=== PATIENT | male | born 1960 | race Caucasian/White ===

== ENCOUNTER 2021-11-08 16:50 | Emergency (ER) | payer MEDICARE, SELFPAY ==
--- NOTE | ~2021-11-08 | MR_ITS ---
EXAMINATION: MR LUMBAR SPINE WITHOUT CONTRAST CLINICAL INFORMATION: Sudden onset back pain with numbness and weakness in the left lower extremity. COMPARISON: CT abdomen and pelvis 08/29/2018. TECHNIQUE: MRI of the lumbar spine was obtained using routine sequences without contrast. FINDINGS: Although only partially included within the [id number] of this examination there is subtle bone marrow edema within the sacrum that may represent the presence of a nondisplaced insufficiency fracture. There is a chronic compression deformity of the L1 vertebral body with impaction upper endplate resulting in 70% vertebral height loss anteriorly. No retropulsion of posterior cortex at this level. There is also a chronic Schmorl's node involving the upper T12 endplate. Vertebral heights are otherwise preserved. There is disc desiccation at multiple levels without substantial loss of intervertebral disc height. The tip of the conus medullaris is located at L1. No mass effect on the conus. Visualized distal cord signal intensity is normal. At L1-L2 the annular contour is normal. No canal or neuroforaminal compromise. At L2-L3 there is a slightly bulging disc. Bilateral facet degenerative change. No canal stenosis. No mass effect on the traversing or foraminal nerve roots. At L3-L4 there is a slightly bulging disc. Bilateral facet degenerative change. No canal stenosis. No mass effect on the traversing or foraminal nerve roots. At L4-L5 there is an asymmetrically bulging disc to the left. Bilateral facet degenerative change. Moderate canal stenosis. There is asymmetric narrowing of the left subarticular zone causing displacement and possible compression of left traversing L5 nerve roots. No foraminal nerve root compression. At L5-S1 there is a central annular fissure associated with an asymmetrically bulging disc to the left. Bilateral facet degenerative change. No canal stenosis. There is asymmetric narrowing of the left subarticular zone causing displacement and possible compression of the left traversing S1 nerve roots. No foraminal nerve root compression. Limited visualization of the retroperitoneal anatomy reveals no abnormal finding. Psoas and paraspinal superficial symmetric. MR/MR lumbar spine wo con IMPRESSION: Although only partially included within the [id number] of this examination is bone marrow edema involving the sacrum that may represent a nondisplaced sacral insufficiency fracture. Otherwise no acute finding. There is a chronic compression deformity of the L1 vertebral body with approximately 70% vertebral height loss anteriorly. There is also a chronic Schmorl's node involving the upper T12 endplate. Bulging discs in conjunction with facet degenerative change causes moderate canal stenosis at L4-L5. There is also asymmetric narrowing of the left subarticular zone at the levels of L4-L5 and L5-S1 resulting in displacement and possible compression of the left L5 and left S1 traversing nerve roots respectively.
[2021-11-08 17:02] VITALS: BP 173/91; BP 185/102; PULSE 58; PULSE 70; RESP 20; O2SAT 94; O2SAT 97; BMI 19.0
--- NOTE | 2021-11-08 17:53 | ED_ITS ---
HPI - Back Pain/Injury General Chief Complaint: Back Pain/Injury <ABDULLAHI Gonzales Last Filed: 11/08/21 20:54> Stated Complaint: left leg pain/ sciatic pain <ABDULLAHI Gonzales Last Filed: 11/08/21 20:54> Time Seen by Provider: 11/08/21 17:13 <ABDULLAHI Gonzales Last Filed: 11/08/21 20:54> Source: patient <ABDULLAHI Gonzales Last Filed: 11/08/21 20:54> Mode of arrival: ambulatory <ABDULLAHI Gonzales Last Filed: 11/08/21 20:54> Limitations: no limitations <ABDULLAHI Gonzales Last Filed: 11/08/21 20:54> History of Present Illness HPI Narrative: 61-year-old male with a past medical history of compression fracture of L1 lumbar vertebrae and COPD was a daily smoker denies any drug usage presenting to the ED with complaints of sudden onset of left lower back pain radiating to his left lower extremity that started around 15:25 prior to arrival while he was driving his car. He reports he has never had back pain like this in the past it has never radiated down to his left lower extremity he has never had numbness. He denies any dizziness, change in vision, headaches, rashes, chest pain, shortness of breath, dyspnea on exertion, orthopnea, palpitations, arm pain or weakness, facial pain or weakness, changes in speech or voice, abdominal pain, flank pain, dysuria, hematuria, abnormal penile discharge, black or bloody stools, lower extremity edema or calf tenderness, recent travel or sick contacts, IV drug use, recent falls or trauma, saddle anesthesia, urinary bowel incontinence or retention or any other symptoms complaints or concerns at this time. 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[employer]) <ABDULLAHI Gonzales Last Filed: 11/08/21 20:54> Timing: constant and progressively worsening <ABDULLAHI Gonzales - Last Filed: 11/08/21 20:54> Severity: severe <ABDULLAHI Gonzales - Last Filed: 11/08/21 20:54> Pain scale (0-10): 10 <ABDULLAHI Gonzales - Last Filed: 11/08/21 20:54> Similar Symptoms Previously: Yes (Although worse today) <ABDULLAHI Gonzales - Last Filed: 11/08/21 20:54> Quality: aching <ABDULLAHI Gonzales - Last Filed: 11/08/21 20:54> Location: lumbar spine <ABDULLAHI Gonzales - Last Filed: 11/08/21 20:54> Radiation: left leg below the knee <ABDULLAHI Gonzales - Last Filed: 11/08/21 20:54> Exacerbating factors: movement, supine positioning, sitting upright, walking and lifting <ABDULLAHI Gonzales - Last Filed: 11/08/21 20:54> Relieving factors: none <ABDULLAHI Gonzales - Last Filed: 11/08/21 20:54> Context: other (While driving) <ABDULLAHI Gonzales - Last Filed: 11/08/21 20:54> Associated symptoms: weakness (to LLE), numbness (to LLE) and difficulty walking <ABDULLAHI Gonzales - Last Filed: 11/08/21 20:54> Work related injury: No <ABDULLAHI Gonzales Last Filed: 11/08/21 20:54> Related Data Home Medications: Previous Rx's Medication Instructions Recorded lidocaine 5 % topical patch 1 patch topical DAILY PRN pain #15 11/08/21 ea morphine 15 mg immediate release 15 mg PO BID PRN pain #10 tabs 11/08/21 tablet <ABDULLAHI Gonzales - Last Filed: 11/08/21 20:54> Allergies/Adverse Reactions: Allergies Allergy/AdvReac Type Severity Reaction Status Date / Time No Known Allergies Allergy Verified 11/08/21 17:07 <ABDULLAHI Gonzales Last Filed: 11/08/21 20:54> Review of Systems Review of Systems: Constitutional : No trauma, No Weight loss, No Fever, No Chills, ENT/Mouth : No Hearing loss, No Ear Pain, No Nasal Congestion, No Sinus Pain, No Hoarseness, No sore throat, No Rhinorrhea, No Swallowing Difficulty Cardiovascular : No Chest Pain, No SOB Respiratory : No Cough, No Dyspnea Gastrointestinal : No Nausea, No Vomiting, No Diarrhea, No abdominal Pain, No Hematochezia, No Melena Genitourinary : No Dysuria, No Urinary Frequency, No Hematuria, No Urinary or Bowel Incontinence/retention Musculoskeletal : + Back pain, No neck pain, No joint stiffness, No joint swelling Skin : No Skin Lesions, No rash or signs of infection Neuro : + LLE Weakness, + to LLE radiation, + LLE Numbness, No headache, no loss of bowel or bladder incontinence, no saddle anesthesia, Denies history of IV drug usage. <ABDULLAHI Gonzales - Last Filed: 11/08/21 20:54> Yes all other systems are reviewed and are negative <ABDULLAHI Gonzales - Last Filed: 11/08/21 20:54> [facility] Past Medical History Attestation statement: The following information was validated with the patient. <ABDULLAHI Gonzales - Last Filed: 11/08/21 20:54> Source: old records reviewed and nursing notes reviewed <ABDULLAHI Gonzales - Last Filed: 11/08/21 20:54> Medical History: Medical History Compression fracture of L1 lumbar vertebra COPD (chronic obstructive pulmonary disease) Smoker <ABDULLAHI Gonzales - Last Filed: 11/08/21 20:54> Surgical History: Surgical History No pertinent past surgical history <ABDULLAHI Gonzales - Last Filed: 11/08/21 20:54> Social History Social History: Social History Housing: House Alcohol intake: current Alcohol intake frequency: 0-2 drinks per day Alcohol type: beer Patient Tobacco Use Status: Current everyday Tobacco user Cigarettes Per Day: 15 Second Hand Smoke Exposure: Yes Advance Directives: No Advance Directives Information Provided: No service: No Current occupational status: disabled <ABDULLAHI Gonzales Last Filed: 11/08/21 20:54> Physical Exam Vital Signs: Vital Signs: Last Vital Signs Pulse 50 11/08/21 22:25 Resp 16 11/08/21 22:25 BP 126/75 11/08/21 22:25 Pulse Ox 96 11/08/21 22:25 O2 Del Method 11/08/21 22:25 BMI result Body Mass Index 19.0 vital signs have been reviewed as normal and appeared to be correct. Blood pressure 185/102. Heart rate normal. Respiration rate normal. Temperature normal. Oxygen saturation normal. <ABDULLAHI Gonzales - Last Filed: 11/08/21 20:54> Vital Signs: Last Vital Signs Pulse 50 11/08/21 22:25 Resp 16 11/08/21 22:25 BP 126/75 11/08/21 22:25 Pulse Ox 96 11/08/21 22:25 O2 Del Method 11/08/21 22:25 BMI result Body Mass Index 19.0 <ABDULLAHI Honeycutt - Last Filed: 11/08/21 23:06> Appearance: Alert. Oriented X3. No acute distress. Head: Normal external exam. Normocephalic. Atraumatic. Eyes: PERRLA. EOMI. Conjunctiva and sclera normal. Eyelids normal. ENT: EAC normal. TM's Normal. Pharynx normal. Uvula midline. Moist mucous membranes. No trismus noted. No drooling noted. No muffled voice noted. Neck: Normal inspection. Neck supple. FROM. No adenopathy. Thyroid Normal. No meningeal signs. No neck mass noted. CVS: Normal heart rate and rhythm. Heart sound normal. No murmurs noted. Pulses normal throughout. Respiratory: No respiratory distress. Painless inspiration. Breath sounds normal. No wheezes/rales/rhonchi noted. Chest nontender. No accessory muscle usage noted or decreased air movement noted. Abdomen: Soft and nontender. Bowel sounds normal in all 4 quadrants. No distention noted. No organomegaly noted. No visible injury noted. Rectal Exam: No abnormalities noted. Normal sensation. Normal rectal tone/sphincter tone noted. Back: No CVA tenderness. Full range of motion noted. No obvious deformities, or edema. Mild para-spinal muscular/mid spinal tenderness from lumbar region to coccyx. Full ROM in back. Although appears to have weakness to LLE and decreased sensation and reflexes. FROM of RLE, normal sensation and motor to right lower extremity. 5/5 strength hip extension/flexion, abduction, adduction to RLE. Mild Lumbar pain with hip flexion against resistance. Straight leg raise test negative on right; Straight leg raise test negative on left; No rashes/lesion/i nduration/fluctuance or signs infection noted. Skin: Skin warm and dry. Normal skin color. Normal skin turgor. No rashes/lesions/lacerations noted. Extremities: No lower extremity edema. No calf tenderness noted. Extremities exhibit normal range of motion. Extremities nontender. Neuro: Oriented X 3. Some motor and sensory deficit to left lower extremity. Normal motor/sensory to upper bilateral arms and right lower extremity. Gait not tested due to pain reports weakness to left lower extremity. Unable to perform plantar flexion or dorsiflexion to left lower extremity. Able to perform plantar flexion and dorsiflexion to right lower extremity. Cranial nerves II-XI intact bilaterally. Facial strength normal. Normal cognition. Speech normal. No pronator drift. No tremor noted. No fasciculations noted. No rigidity noted. Muscle tone normal throughout. No asterixis noted. Finge r-to-nose test normal. Heel to mathew test normal. Hand drop from overhead Misses face. NIHSS score 0 <ABDULLAHI Gonzales - Last Filed: 11/08/21 20:54> Course Course Course Narrative: 17:40pm - Pt c likely muscular pain, but could be herniated disc. Patient does have some weakness to left lower extremity although normal sphincter tone/normal rectal sensation. Gait not tested at this time due to patient reports weakness to left lower extremity and refusing to ambulate at this time. Otherwise no other neuro deficits noted. He has full strength and sensation on all other extremities. Not c/w AAA/epidural abscess/dissection.No high risk Hx (Incont, fever, immunosupp, recent surgery/LP, coag, signif trauma, wt loss, puls mass, hx/o Ca, TB, or IVDU). Not c/w Pyelo/UTI/kidney stone/spinal fx. Not cauda equina syndrome. Although due to new onset of left lower extremity weakness not his usual lower back pain will obtain labs, UA, MRI of lumbar spine without contrast. Provide 4 mg of Zofran, 2 mg of p.o. Valium, 4 mg of morphine, 30 mg of IV Toradol and 125 mg of IV Solu-Medrol re-evaluate. <ABDULLAHI Gonzales Last Filed: 11/08/21 20:54> Reevaluation(s) Reevaluation #1: - labs returned reviewed patient's H&H 21.1/60.9 MCV 102.4. Platelet count 153. BUN 4. Random glucose 127. Total bilirubin 1.9. Alkaline phosphate 138. Otherwise all other labs are within normal limits. - awaiting UA and MRI will re-evaluate. <ABDULLAHI Gonzales - Last Filed: 11/08/21 20:54> Time: 20:17 <ABDULLAHI Gonzales Last Filed: 11/08/21 20:54> Reevaluation #2: Sign-out to CAR[facility] Patel pending MRI of lumbar spine and UA. <ABDULLAHI Gonzales Last Filed: 11/08/21 20:54> Time: 20:53 <ABDULLAHI Gonzales Last Filed: 11/08/21 20:54> Reevaluation #3: Patients MRI was reviewed, will consult [facility] neuro surgery for guidance. Patient requesting to go home however he tells me he does on be transferred. I did do an evaluation on this patient, 3/5 strength to left and 4/5 to right. Normal reflexes. Normal plantar and dorsiflexion w/ weakness on the left and normal on the right. Able to ambulate, no saddle paresthesias. <ABDULLAHI Honeycutt Last Filed: 11/08/21 23:06> Time: 22:44 <ABDULLAHI Honeycutt Last Filed: 11/08/21 23:06> Additional Reevaluation(s): 1058 Spoke to [facility] neuro Dr. Dwayne Rosado surgery went over MRI report with Dr. Jose paniagua for outpatient follow up. Recommend pain control measures and prompt outpatient follow up. Sent imaging to [facility] and he was able to visualize imaging. He tells me L1 appears to be chronic, not causing nerve compression at that site. L4-L5 w/ b/l foraminal stenosis, no need for emergent tx at this time. Recommends conservative therapies. Patient will likely require pain control, conservative management, physical therapy, outpatient referral and potentially injections. Recommend referral to neurosurgery if conservative fails. Worsening pain should prompt emergency room visit, will educate patient on worrisome signs and symptoms and when to return or go to [facility]. At this time I feel comfortable discharge home will discharge on p.o. morphine. At time of discharge patient able to ambulate without difficulties, normal coordination, while he has been in the emergency department no bladder or bowel incontinence/retention, he also denied this previously, patient appears comfortable would like to go home at this time. Educated on treatment plan and diagnosis comfortable with discharge. <ABDULLAHI Honeycutt - Last Filed: 11/08/21 23:06> MDM - Back Pain/Injury Medical Records Attestation: I reviewed the patient's medical records. <ABDULLAHI Gonzales - Last Filed: 11/08/21 20:54> Lab Data Attestation: I reviewed the patient's lab results. <ABDULLAHI Gonzales - Last Filed: 11/08/21 20:54> Result diagrams: : 11/08/21 18:02 11/08/21 18:02 <ABDULLAHI Gonzales - Last Filed: 11/08/21 20:54> Labs: Lab Results 11/08/21 11/08/21 11/08/21 Range/Units 18:02 18:02 18:02 WBC 10.7 (4.8-10.8) X10*3/uL RBC 5.95 H (4.60-5.80) X10*6/uL Hgb 21.2 H (14.0-18.0) g/dl Hct 60.9 H (42.0-52.0) % MCV 102.4 H (80.0-98.0) fL MCH 35.6 H (27.0-33.0) pg MCHC 34.8 (31.0-36.0) g/dl RDW 13.6 (11.0-16.0) % Plt Count 153 L (160-400) X10*3/uL MPV 9.3 L (9.4-12.4) fL Immature Gran % (Auto) 0.9 H (0.0-0.4) % Neut % (Auto) 80.2 H (45-73) % Lymph % (Auto) 7.1 L (20-40) % [place] % (Auto) 11.2 H (2-11) % Eos % (Auto) 0.1 (0-4) % Baso % (Auto) 0.5 (0-2) % Lymph # (Auto) 0.8 L (1.2-4.9) X10*3/uL [place] # (Auto) 1.2 (0.1-1.2) X10*3/uL Eos # (Auto) 0.0 (0.0-0.4) X10*3/uL Baso # (Auto) 0.1 (0.0-0.2) X10*3/uL Abs Immat Gran (auto) 0.10 H (0.00-0.03) X10*3/uL Absolute Neuts (auto) 8.5 H (2.0-8.3) x10*3/uL Absolute Nucleated RBC 0.000 (0.0-0.012) X10*3/uL Nucleated RBC % (auto) 0.0 (0.0-0.2) /100WBC Smear Tech's Comments VERIFIED ESR (0-15) MM/HR PT 11.9 (10.0-13.1) SEC INR 1.0 (0.9-1.1) Sodium 138 (135-145) mmol/L Potassium 3.8 (3.3-5.1) mmol/L Chloride 97 (96-108) mmol/L Carbon Dioxide 26 (22-29) mmol/L Anion Gap 19 (12-20) BUN 4 L (9-16) mg/dL Creatinine 0.80 (0.5-1.4) mg/dL Estim Creat Clear Calc 75.7 Estimated GFR > 60 Random Glucose 127 H (60-115) mg/dL Calcium 8.5 (8.4-10.2) mg/dL Magnesium 1.7 (1.6-2.6) mg/dL Total Bilirubin 1.9 H (0.0-1.0) mg/dL AST 23 (5-37) U/L ALT 14 (0-40) U/L Alkaline Phosphatase 138 H (39-117) U/L C-Reactive Protein 0.39 (< or = 0.50) mg/dL Total Protein 6.6 (6.5-8.0) g/dL Albumin 3.7 (3.5-5.0) g/dL 11/08/ Range/Units 18:02 WBC (4.8-10.8) X10*3/uL RBC (4.60-5.80) X10*6/uL Hgb (14.0-18.0) g/dl Hct (42.0-52.0) % MCV (80.0-98.0) fL MCH (27.0-33.0) pg MCHC (31.0-36.0) g/dl RDW (11.0-16.0) % Plt Count (160-400) X10*3/uL MPV (9.4-12.4) fL Immature Gran % (Auto) (0.0-0.4) % Neut % (Auto) (45-73) % Lymph % (Auto) (20-40) % [place] % (Auto) (2-11) % Eos % (Auto) (0-4) % Baso % (Auto) (0-2) % Lymph # (Auto) (1.2-4.9) X10*3/uL [place] # (Auto) (0.1-1.2) X10*3/uL Eos # (Auto) (0.0-0.4) X10*3/uL Baso # (Auto) (0.0-0.2) X10*3/uL Abs Immat Gran (auto) (0.00-0.03) X10*3/uL Absolute Neuts (auto) (2.0-8.3) x10*3/uL Absolute Nucleated RBC (0.0-0.012) X10*3/uL Nucleated RBC % (auto) (0.0-0.2) /100WBC Smear Tech's Comments ESR 1 (0-15) MM/HR PT (10.0-13.1) SEC INR (0.9-1.1) Sodium (135-145) mmol/L Potassium (3.3-5.1) mmol/L Chloride (96-108) mmol/L Carbon Dioxide (22-29) mmol/L Anion Gap (12-20) BUN (9-16) mg/dL Creatinine (0.5-1.4) mg/dL Estim Creat Clear Calc Estimated GFR Random Glucose (60-115) mg/dL Calcium (8.4-10.2) mg/dL Magnesium (1.6-2.6) mg/dL Total Bilirubin (0.0-1.0) mg/dL AST (5-37) U/L ALT (0-40) U/L Alkaline Phosphatase (39-117) U/L C-Reactive Protein (< or = 0.50) mg/dL Total Protein (6.5-8.0) g/dL Albumin (3.5-5.0) g/dL <ABDULLAHI Gonzales - Last Filed: 11/08/21 20:54> Lab Results 11/08/21 11/08/21 11/08/21 Range/Units 18:02 18:02 18:02 WBC 10.7 (4.8-10.8) X10*3/uL RBC 5.95 H (4.60-5.80) X10*6/uL Hgb 21.2 H (14.0-18.0) g/dl Hct 60.9 H (42.0-52.0) % MCV 102.4 H (80.0-98.0) fL MCH 35.6 H (27.0-33.0) pg MCHC 34.8 (31.0-36.0) g/dl RDW 13.6 (11.0-16.0) % Plt Count 153 L (160-400) X10*3/uL MPV 9.3 L (9.4-12.4) fL Immature Gran % (Auto) 0.9 H (0.0-0.4) % Neut % (Auto) 80.2 H (45-73) % Lymph % (Auto) 7.1 L (20-40) % [place] % (Auto) 11.2 H (2-11) % Eos % (Auto) 0.1 (0-4) % Baso % (Auto) 0.5 (0-2) % Lymph # (Auto) 0.8 L (1.2-4.9) X10*3/uL [place] # (Auto) 1.2 (0.1-1.2) X10*3/uL Eos # (Auto) 0.0 (0.0-0.4) X10*3/uL Baso # (Auto) 0.1 (0.0-0.2) X10*3/uL Abs Immat Gran (auto) 0.10 H (0.00-0.03) X10*3/uL Absolute Neuts (auto) 8.5 H (2.0-8.3) x10*3/uL Absolute Nucleated RBC 0.000 (0.0-0.012) X10*3/uL Nucleated RBC % (auto) 0.0 (0.0-0.2) /100WBC Smear Tech's Comments VERIFIED ESR (0-15) MM/HR PT 11.9 (10.0-13.1) SEC INR 1.0 (0.9-1.1) Sodium 138 (135-145) mmol/L Potassium 3.8 (3.3-5.1) mmol/L Chloride 97 (96-108) mmol/L Carbon Dioxide 26 (22-29) mmol/L Anion Gap 19 (12-20) BUN 4 L (9-16) mg/dL Creatinine 0.80 (0.5-1.4) mg/dL Estim Creat Clear Calc 75.7 Estimated GFR > 60 Random Glucose 127 H (60-115) mg/dL Calcium 8.5 (8.4-10.2) mg/dL Magnesium 1.7 (1.6-2.6) mg/dL Total Bilirubin 1.9 H (0.0-1.0) mg/dL AST 23 (5-37) U/L ALT 14 (0-40) U/L Alkaline Phosphatase 138 H (39-117) U/L C-Reactive Protein 0.39 (< or = 0.50) mg/dL Total Protein 6.6 (6.5-8.0) g/dL Albumin 3.7 (3.5-5.0) g/dL 11/08/21 Range/Units 18:02 WBC (4.8-10.8) X10*3/uL RBC (4.60-5.80) X10*6/uL Hgb (14.0-18.0) g/dl Hct (42.0-52.0) % MCV (80.0-98.0) fL MCH (27.0-33.0) pg MCHC (31.0-36.0) g/dl RDW (11.0-16.0) % Plt Count (160-400) X10*3/uL MPV (9.4-12.4) fL Immature Gran % (Auto) (0.0-0.4) % Neut % (Auto) (45-73) % Lymph % (Auto) (20-40) % [place] % (Auto) (2-11) % Eos % (Auto) (0-4) % Baso % (Auto) (0-2) % Lymph # (Auto) (1.2-4.9) X10*3/uL [place] # (Auto) (0.1-1.2) X10*3/uL Eos # (Auto) (0.0-0.4) X10*3/uL Baso # (Auto) (0.0-0.2) X10*3/uL Abs Immat Gran (auto) (0.00-0.03) X10*3/uL Absolute Neuts (auto) (2.0-8.3) x10*3/uL Absolute Nucleated RBC (0.0-0.012) X10*3/uL Nucleated RBC % (auto) (0.0-0.2) /100WBC Smear Tech's Comments ESR 1 (0-15) MM/HR PT (10.0-13.1) SEC INR (0.9-1.1) Sodium (135-145) mmol/L Potassium (3.3-5.1) mmol/L Chloride (96-108) mmol/L Carbon Dioxide (22-29) mmol/L Anion Gap (12-20) BUN (9-16) mg/dL Creatinine (0.5-1.4) mg/dL Estim Creat Clear Calc Estimated GFR Random Glucose (60-115) mg/dL Calcium (8.4-10.2) mg/dL Magnesium (1.6-2.6) mg/dL Total Bilirubin (0.0-1.0) mg/dL AST (5-37) U/L ALT (0-40) U/L Alkaline Phosphatase (39-117) U/L C-Reactive Protein (< or = 0.50) mg/dL Total Protein (6.5-8.0) g/dL Albumin (3.5-5.0) g/dL <ABDULLAHI Honeycutt Last Filed: 11/08/21 23:06> Imaging Data Lumbar spine MRI without contrast: Attestation: I personally reviewed and interpreted this imaging study as follows: <ABDULLAHI Gonzales Last Filed: 11/08/21 20:54> Critical Care Time Critical Care Time Critical Care Time: Yes <ABDULLAHI Gonzales Last Filed: 11/08/21 20:54> Total Critical Care Time: 60 <ABDULLAHI Gonzales Last Filed: 11/08/21 20:54> Attestation: I personally attest to this time spent taking care of the patient <ABDULLAHI Gonzales Last Filed: 11/08/21 20:54> Discharge Plan Discharge Clinical Impression: Lower back pain, Sacral fracture, Lumbar disc herniation <ABDULLAHI Gonzales Last Filed: 11/08/21 20:54> Patient Disposition: Home, Self-Care <ABDULLAHI Gonzales Last Filed: 11/08/21 20:54> Instructions: Sacral Fracture (ED), Acute Low Back Pain (ED), Back Pain (ED) <ABDULLAHI Gonzales Last Filed: 11/08/21 20:54> Additional Instructions: Take your medications as prescribed. If you were prescribed antibiotics today, it is important that you take your medication to their entirety, do not skip any doses, do not finish them early. Follow-up with your primary care provider this week. Return to the emergency department with new or worsening symptoms. Such as fevers, chills, chest pain, shortness of breath, nausea, vomiting, dizziness, headache, vision changes, lethargy, urinary/bowel incontinence or retention, weakness, inability to walk, worsening pain In case of emergency call 911 <ABDULLAHI Gonzales Last Filed: 11/08/21 20:54> Prescriptions: New lidocaine 5 % adhesive patch,medicated 1 patch topical DAILY PRN (Reason: pain) Qty: 15 0RF Rx Instructions: leave on most painful area for up to 12 hrs morphine 15 mg tablet 15 mg PO BID PRN (Reason: pain) Qty: 10 0RF Rx Instructions: Partial Fill upon patient request. <ABDULLAHI Gonzales Last Filed: 11/08/21 20:54>
[2021-11-08 18:09] LABS: Eosinophils Percent Auto 0.1 % (0-4); Imm Gran Pct Auto 0.9 % (0.0-0.4); MANUAL DIFF FLAG SCAN; PLT CLUMP 1; Red Cell Distribution Width 13.6 % (11.0-16.0); SCAN SMEAR FLAG 1
[2021-11-08 18:10] VITALS: RESP 20
[2021-11-08] MEDS: Morphine Sulfate 4 MG/ML CARTRIDGE IVPUSH (18:10)
[2021-11-08] MEDS: ondansetron HCL 4 MG/2 ML VIAL IVPUSH (18:10)
[2021-11-08] MEDS: methylPREDNISolone Sod Succ 125 MG/2 ML VIAL IVPUSH (18:10)
[2021-11-08] MEDS: diazePAM 2 MG TABLET PO (18:10)
[2021-11-08] MEDS: Ketorolac Tromethamine 30 MG/ML VIAL IVPUSH (18:10)
[2021-11-08 18:11] LABS: Basophils Absolute Auto 0.1 X10*3/uL (0.0-0.2); Basophils Percent Auto 0.5 % (0-2); Lymphocytes Absolute Auto 0.8 X10*3/uL (1.2-4.9); Lymphocytes Percent Auto 7.1 % (20-40); Mean Corpuscular HGB Conc 34.8 g/dl (31.0-36.0); Mean Corpuscular Hemoglobin 35.6 pg (27.0-33.0); Mean Corpuscular Volume 102.4 fL (80.0-98.0); Mean Platelet Volume 9.3 fL (9.4-12.4); Monocytes Absolute Auto 1.2 X10*3/uL (0.1-1.2); Monocytes Percent Auto 11.2 % (2-11); Neutrophils Absolute Auto 8.5 x10*3/uL (2.0-8.3); Neutrophils Percent Auto 80.2 % (45-73); Red Blood Count 5.95 X10*6/uL (4.60-5.80)
[2021-11-08 18:13] LABS: Hematocrit 60.9 % (42.0-52.0); Hemoglobin 21.2 g/dl (14.0-18.0); Prothrombin Time 11.9 SEC (10.0-13.1)
[2021-11-08 18:15] LABS: Platelet Count 153 X10*3/uL (160-400); White Blood Count 10.7 X10*3/uL (4.8-10.8)
[2021-11-08 18:29] LABS: SLIDE REVIEW VERIFIED
[2021-11-08 18:44] LABS: Alanine Aminotransferase 14 U/L (0-40); Albumin Level 3.7 g/dL (3.5-5.0); Alkaline Phosphatase 138 U/L (39-117); Anion Gap 19 (12-20); Aspartate Amino Transferase 23 U/L (5-37); Bilirubin Total 1.9 mg/dL (0.0-1.0); Blood Urea Nitrogen 4 mg/dL (9-16); Calcium 8.5 mg/dL (8.4-10.2); Carbon Dioxide 26 mmol/L (22-29); Chloride 97 mmol/L (96-108); Creatinine Clr Calc Pharmacy 75.7; Estimated Glomerular Filt Rate > 60; Glucose Random 127 mg/dL (60-115); Magnesium 1.7 mg/dL (1.6-2.6); Potassium 3.8 mmol/L (3.3-5.1); Sodium 138 mmol/L (135-145); Total Protein 6.6 g/dL (6.5-8.0)
[2021-11-08 19:00] VITALS: BP 141/76; PULSE 64; RESP 16; O2SAT 92
--- NOTE | 2021-11-08 19:02 | PC.NURSE ---
patient awake and alert, skin pwd, resp even and non labored. speaking in full, clear sentences. states left back and left leg pain remain the same post meds. awaiting MRI at 1999.
--- NOTE | 2021-11-08 20:07 | PC.NURSE ---
patient currently at MRI
[2021-11-08 21:04] LABS: Add Laboratory Test ADDED
[2021-11-08 21:13] LABS: C Reactive Protein 0.39 mg/dL (< or = 0.50)
[2021-11-08 21:48] LABS: Erythrocyte Sedimentation Rate 1 MM/HR (0-15)
[2021-11-08 22:25] VITALS: BP 126/75; PULSE 50; RESP 16; O2SAT 96
== END 2021-11-08 23:30 | disposition home or self-care (01) ==
PROVIDERS: Physician Assistant; Physician Assistant Medical; Emergency Provider Emergency Medicine; PCP Internal Medicine
DX: S32.10XA Unspecified fracture of sacrum, initial encounter for closed fracture (principal); X58.XXXA Exposure to other specified factors, initial encounter; M51.26 Other intervertebral disc displacement, lumbar region; M54.50 Low back pain, unspecified; F17.210 Nicotine dependence, cigarettes, uncomplicated; Y93.89 Activity, other specified; Y92.810 Car as the place of occurrence of the external cause; Y99.9 Unspecified external cause status
CPT/HCPCS: 36415; 72148; 80053; 83735; 85025; 85610; 85652; 86140; 96374; 96375; 99284; 99285; J1885; J2270; J2405; J2930

== ENCOUNTER → 2021-11-27 15:44 | Outpatient (BNVA) | payer MEDICARE, SELFPAY | PROVIDERS: PCP Internal Medicine; Visit Provider Internal Medicine Endocrinology, Diabetes & Metabolism | DX: M84.48XA Pathological fracture, other site, initial encounter for fracture (principal); M80.88XS Other osteoporosis with current pathological fracture, vertebra(e), sequela | CPT/HCPCS: 99202 ==

== ENCOUNTER 2021-12-17 09:20 | Outpatient (REF) | payer MEDICARE, SELFPAY ==
[2021-12-17 11:18] LABS: MANUAL DIFF FLAG NO
[2021-12-17 11:31] LABS: Basophils Percent Auto 0.5 % (0-2); Eosinophils Absolute Auto 0.2 X10*3/uL (0.0-0.4); Eosinophils Percent Auto 2.4 % (0-4); Hemoglobin 19.8 g/dl (14.0-18.0); Imm Gran Abs Auto 0.04 X10*3/uL (0.00-0.03); Imm Gran Pct Auto 0.5 % (0.0-0.4); Lymphocytes Percent Auto 36.3 % (20-40); Mean Corpuscular HGB Conc 34.2 g/dl (31.0-36.0); Mean Corpuscular Hemoglobin 34.2 pg (27.0-33.0); Mean Platelet Volume 11.2 fL (9.4-12.4); Monocytes Absolute Auto 0.8 X10*3/uL (0.1-1.2); Neutrophils Absolute Auto 4.2 x10*3/uL (2.0-8.3); Neutrophils Percent Auto 50.3 % (45-73); Platelet Count 227 X10*3/uL (160-400); Red Blood Count 5.79 X10*6/uL (4.60-5.80); Red Cell Distribution Width 12.9 % (11.0-16.0); White Blood Count 8.4 X10*3/uL (4.8-10.8)
[2021-12-17 11:33] LABS: Hematocrit 57.9 % (42.0-52.0)
[2021-12-17 11:47] LABS: Appearance Urine Clear; Color Urine Yellow; Glucose Urine UA Negative (Negative); Leukocyte Esterase Urine Negative (Negative); Nitrite Urine Negative (Negative); PH 5.5 (5.0-9.0); Urine Blood Negative (Negative); Urine Ketones Negative (Negative); Urine Protein Negative (Neg-Trace)
[2021-12-17 12:03] LABS: Alanine Aminotransferase 12 U/L (0-40); Alkaline Phosphatase 67 U/L (39-117); Anion Gap 15 (12-20); Aspartate Amino Transferase 15 U/L (5-37); Bilirubin Total 0.7 mg/dL (0.0-1.0); Blood Urea Nitrogen 9 mg/dL (9-16); Calcium 9.7 mg/dL (8.4-10.2); Carbon Dioxide 29 mmol/L (22-29); Chloride 101 mmol/L (96-108); Cholesterol 175 mg/dL; Estimated Glomerular Filt Rate > 60; Glucose Fasting 94 mg/dL (60-99); HDL Cholesterol 77 mg/dL; LDL Cholesterol Calculated 79 mg/dl; Phosphorus 3.5 mg/dL (2.7-4.5); Potassium 4.2 mmol/L (3.3-5.1); Sodium 141 mmol/L (135-145); Total Protein 6.7 g/dL (6.5-8.0); Triglycerides 97 mg/dL
[2021-12-17 12:09] LABS: Prostate Specific Antigen Scr 1.81 ng/mL (<0.05-4.0); TSH reflex Free T4 2.17 uIU/mL (0.32-4.0); Vitamin D 25-OH Total 7.2 ng/mL (>30)
[2021-12-18 21:27] LABS: Prot Elec - Albumin 3.9 g/dL (3.8-4.8); Prot Elec - Alpha1 0.4 g/dL (0.2-0.3); Prot Elec - Beta 1 0.4 g/dL (0.4-0.6); Prot Elec - Beta 2 0.3 g/dL (0.2-0.5); Prot Elec - Gamma 0.9 g/dL (0.8-1.7); Prot Elec - Total Protein 6.9 g/dL (6.1-8.1)
[2021-12-23 19:42] LABS: Testosterone, Total 562 ng/dL (250-1100)
== END 2021-12-17 09:21 | disposition home or self-care (01) ==
LOC: HO.HMGCLDS 09:20
PROVIDERS: Absent Provider Internal Medicine Endocrinology, Diabetes & Metabolism; PCP Internal Medicine; Visit Provider Internal Medicine
DX: Z00.00 Encounter for general adult medical examination without abnormal findings (principal); E55.9 Vitamin D deficiency, unspecified; M80.00XS Age-related osteoporosis with current pathological fracture, unspecified site, sequela; Z12.5 Encounter for screening for malignant neoplasm of prostate; E78.5 Hyperlipidemia, unspecified; R53.83 Other fatigue
CPT/HCPCS: 36415; 80053; 80061; 81003; 82306; 84100; 84153; 84165; 84402; 84403; 84443; 85025; 86335

== ENCOUNTER 2021-12-20 09:12 | Outpatient (REF) | payer MEDICARE, SELFPAY ==
[2021-12-20 12:24] LABS: Total Volume 24 Hour Urine 600 mL
[2021-12-20 13:19] LABS: Creatinine, 24Hr Urine 0.7 G/Day (1.0-2.0)
[2021-12-22 17:52] LABS: Calcium, 24 Hr Urine 103 mg/24 h; Calcium/Creatinine Ratio 150 mg/g creat (30-210); Creatinine 24Hr Urine 0.68 g/24 h (0.50-2.15)
== END 2021-12-20 09:13 | disposition home or self-care (01) ==
LOC: HO.HMGCLDS 09:12
PROVIDERS: PCP Internal Medicine; Visit Provider Internal Medicine Endocrinology, Diabetes & Metabolism
DX: M80.00XS Age-related osteoporosis with current pathological fracture, unspecified site, sequela (principal)
CPT/HCPCS: 82340; 82570

== ENCOUNTER 2021-12-21 14:46 | Outpatient (REF) | payer MEDICARE, SELFPAY ==
--- NOTE | ~2021-12-21 | MM_ITS ---
EXAMINATION: BONE DENSITOMETRY CLINICAL INDICATION: Osteoporosis. COMPARISON: Baseline BD dated 12/23/2017. TECHNIQUE: Using a imeem DXA System (software version: 13.1) manufactured by [employer], dual-energy x-ray absorptiometry was performed of the lumbar spine and left hip. The images are of good technical quality. Summary results are attached. FINDINGS: AP SPINE L1-L4: Current: BMD 0.878 g/cm2, Z-score -1.4, T-score -2.8, osteoporosis, 5.2% decrease from baseline (<5% change is not significant). Baseline: BMD 0.926 g/cm2. LEFT FEMUR, NECK: Current: BMD 0.779 g/cm2, Z-score -0.5, T-score -2.2, osteopenia. Baseline: BMD 0.784 g/cm2. LEFT FEMUR, TOTAL: Current: BMD 0.719 g/cm2, Z-score -1.5, T-score -2.7, osteoporosis, 6.1% decrease from baseline (<5% change is not significant). Baseline: BMD 0.766 g/cm2. IDENTIFIED RISK FACTORS: Height loss, history of fracture (adult), low body weight, low calcium intake, osteoporosis, tobacco use (current smoker). HISTORY OF FRACTURE: Spine, wrist. MEDICATIONS: None listed. MM/XR DEXA axial skeleton IMPRESSION: 1. DIAGNOSIS: Osteoporosis based on the lowest T-score value of -2.8 in the lumbar spine applying World Health Organization criteria. 2. 10-YEAR FRACTURE RISK PREDICTION, FRAX: According to the guidelines, FRAX calculation should only be performed on patients in the osteopenia bone density category. Therefore, FRAX was not performed on this patient. 3. Treatment Recommendations: NOF guidelines recommend consideration for treatment in postmenopausal women and men age 50 and older presenting with the following: -A hip or vertebral (clinical or morphometric) fracture. -T-score less than or equal to -2.5 at the femoral neck or spine after appropriate evaluation to exclude secondary causes. -Low bone mass at the hip or spine and a 10-year fracture probability by FRAX of greater than or equal to 3% for hip fracture or greater than or equal to 20% for major osteoporotic fracture based on the [place] adapted WHO algorithm. 4. Other Recommendations: All treatment decisions require clinical judgment and consideration of individual patient factors, including patient preferences, comorbidities, previous drug use, risk factors not captured in the FRAX model (e.g. frailty, falls, vitamin D deficiency, increased bone turnover, interval significant decline in bone density) and possible under or overestimation of fracture risk by FRAX. Additional medical evaluation for secondary cause of low bone mineral density may be appropriate. FUTURE SCAN RECOMMENDATION: People with diagnosed cases of osteoporosis or at high risk for fracture should have regular bone mineral density tests. For patients eligible for Medicare, routine testing is allowed once every 2 years. The testing frequency can be increased to one year for patients who have rapidly progressing disease, those who are receiving or discontinuing medical therapy to restore bone mass, or have additional risk factors.
== END 2021-12-21 14:47 | disposition home or self-care (01) ==
LOC: HO.MAMMO 14:46
PROVIDERS: PCP Internal Medicine; Visit Provider Internal Medicine
DX: M81.8 Other osteoporosis without current pathological fracture (principal)
CPT/HCPCS: 77080

== ENCOUNTER 2022-01-01 07:54 | Outpatient (REF) | payer MEDICARE, SELFPAY | END 2022-01-01 07:55 | disposition home or self-care (01) | LOC: HO.BBR 07:54 | PROVIDERS: PCP Internal Medicine; Visit Provider Internal Medicine | DX: D75.1 Secondary polycythemia (principal) | CPT/HCPCS: 85018; 99195 ==

== ENCOUNTER 2022-01-10 13:02 | Outpatient (REF) | payer MEDICARE, SELFPAY ==
--- NOTE | ~2022-01-10 | CT_ITS ---
EXAMINATION: CT CHEST WITHOUT CONTRAST CLINICAL INFORMATION: Weight loss, polycythemia, smoking history. COMPARISON: Chest radiograph 02/04/2019, CTA chest 12/16/2016. TECHNIQUE: Multidetector volumetric CT imaging of the chest was done. Axial MIP volume rendering provided. Sagittal and coronal reformatted images were obtained. This CT examination was performed using dose optimization techniques as appropriate, variously including the following: *Automated exposure control *Adjustment of mA and/or kV according to patient size (this includes techniques or standardized protocols for targeted exams where dose is matched to indication/reason for exam; i.e. extremities or head) *Use of iterative reconstruction technique DLP: 191 mGy-cm FINDINGS: LUNGS: Scattered pulmonary nodular densities are seen, and krueger images of all have been saved. For example: 3 mm left upper lobe nodule anteriorly (5:232). Two adjacent possible tree-in-bud type nodular densities seen measuring 8 mm together (5:267). 3 mm right lower lobe nodule (5:308). Two adjacent branching densities in the left lower lobe measuring about 3 mm each (5:313-320). 4 mm ground-glass opacity right lower lobe with adjacent 3 mm nodular density (5:337). 3 mm branching nodular density right lower lobe laterally (5:431). At the time of the 2017 study, moderately severe reticular opacities and some ground-glass opacities were present which appear significantly improved. I cannot say, however, that the opacities seen on today's study were present previously. MEDIASTINUM: Ascending aorta is dilated measuring 4.3 cm maximum transverse dimension at the level of the pulmonary artery where as previously this was 4.1 cm. No mediastinal or hilar lymphadenopathy. CORONARY ARTERY CALCIFICATION: Coronary calcifications are present. PLEURA: There is no pleural effusion. No pleural mass or thickening. AXILLA: No lymphadenopathy. UPPER ABDOMEN: Unremarkable. OSSEOUS STRUCTURES: Generalized osteopenia. There has been progression of a compression fracture at L1 with mild compression of the superior endplates of T12 and T10. No findings suggestive of bony metastatic disease. CT/CT chest wo IV con IMPRESSION: 1. Scattered pulmonary nodular densities, as described above. Previously, even more densities had been seen. However, considerable have cleared and the current densities may be new. The pattern is not worrisome for metastatic disease. 2. Dilated ascending aorta measuring 4.3 cm. 3. Progressed compression fracture L1. 4. Other incidental findings, as described above, including coronary calcifications. 2017 Fleischner Society Recommendations for Lung Nodule(s): Follow-Up based on size (average of long- and short-axis diameters). Use most suspicious nodule for followup. Multiple Solid lung nodules < 6 mm: Follow up management based on most suspicious nodule. In a low-risk patient, no routine followup imaging is recommended. In a high-risk patient, a non-contrast Chest CT at 12 months is optional. If performed and the nodule is stable at 12 months, no further followup is recommended. These guidelines do not apply to patients younger than 35 years, immunocompromised patients, and patients with cancer. F/u in patients with significant comorbidities as clinically warranted. For lung cancer screening, adhere to Lung-RADS guidelines. Reference: Radiology. 2017 Vikram; 284(1):228-243
== END 2022-01-10 13:03 | disposition home or self-care (01) ==
LOC: HO.CT 13:02
PROVIDERS: PCP Internal Medicine; Visit Provider Internal Medicine
DX: F17.200 Nicotine dependence, unspecified, uncomplicated (principal); R63.4 Abnormal weight loss; D75.1 Secondary polycythemia
CPT/HCPCS: 71250

== ENCOUNTER → 2022-01-21 09:34 | Outpatient (BNVA) | payer MEDICARE, SELFPAY | PROVIDERS: PCP Internal Medicine; Visit Provider Internal Medicine Pulmonary Disease | DX: J44.9 Chronic obstructive pulmonary disease, unspecified (principal); R91.8 Other nonspecific abnormal finding of lung field | CPT/HCPCS: 99202 ==

== ENCOUNTER 2022-02-15 07:46 | Outpatient (REF) | payer MEDICARE, SELFPAY ==
--- NOTE | 2022-02-15 15:10 | PFT_ITS ---
FLOWS: FEV1 51% of predicted at 1.67 L. FVC 66% of predicted at 2.89 L. FEV1 to FVC ratio of 0.58. Positive bronchodilator response. LUNG VOLUMES: Total lung capacity 106% of predicted at 7.00 L. Residual volume 205% of predicted at 4.52 L. Slow vital capacity 56% of predicted at 2.48 L. Expiratory reserve volume 11% of predicted at 0.14 L. Diffusion capacity is moderately decreased, diffusion capacity adjust to being mildly decreased after correction for alveolar ventilation. IMPRESSION: Moderate to severe obstructive ventilatory defect with positive bronchodilator response. Increased residual volume suggests air trapping. Decreased diffusion capacity suggests emphysema. MD BARRERA Stein/MODL / [id number]
== END 2022-02-15 07:47 | disposition home or self-care (01) ==
LOC: HO.RESP 07:46
PROVIDERS: PCP Internal Medicine; Visit Provider Internal Medicine Pulmonary Disease
DX: J44.9 Chronic obstructive pulmonary disease, unspecified (principal)
CPT/HCPCS: 94060; 94727; 94729